=== PATIENT | male | born 2000 | race Two or more races ===

== ENCOUNTER 2019-09-09 02:09 | Inpatient (IN) | payer OTHER ==
[~2019-09-09] VITALS: Ht 162.6 cm; Wt 83.5 kg
--- NOTE | 2019-09-09 02:15 | NUR ---
Pt presents from [facility] for report of drinking 4-6 ounces of bleach around midnight. Pt recently moved here from [place]. Per EMS, pt reported to them that he has been having life stressors and wants to move back to [place]. Pt told this RN that he didn't drink the bleach "for problems" and that it was "an accident". Pt refuses to answer SI screening questions but denies HI. Per EMS, pt has had multiple episodes of emesis with VSS. Pt is alert and oriented. NAD. Pt not swallowing his own saliva, otherwise assessment WNL. Belongings labeled and in locker. Sitter outside of room. Pt in gown.
[2019-09-09] MEDS ORDERED: SODIUM CHLORIDE 0.9% 1,000 ML IV ONE (02:34)
[2019-09-09] MEDS ORDERED: PANTOPRAZOLE 40 MG IV ONE (02:40)
[2019-09-09] MEDS ORDERED: PLEASE ENTER ALLERGIES MC SCH (03:00)
[2019-09-09] MEDS ORDERED: PANTOPRAZOLE 40 MG IV IVPush SCH (03:00)
--- NOTE | 2019-09-09 03:02 | NUR ---
IV STARTED. PT MEDICATED PER MAR. IVF INFUSING. URINE OBTAINED AND TUBED TO LAB. SITTER IN PLACE.
[2019-09-09 03:04] LABS: BASOPHILS # (AUTO) 0.04 x10^3/uL (0-0.3); BASOPHILS % (AUTO) 1 % (0-1); EOSINOPHILS # (AUTO) 0.22 x10^3/uL (0-0.8); EOSINOPHILS % (AUTO) 3 % (1-7); LYMPHOCYTES # (AUTO) 1.68 x10^3/uL (1-6.1); LYMPHOCYTES % (AUTO) 19 % (22-44); MD NO; MEAN CORPUSCULAR HEMOGLOBIN 31.3 pg (27.5-34.5); MEAN CORPUSCULAR HGB CONC 33.2 g/dL (33.2-36.2); MEAN CORPUSCULAR VOLUME 94.3 fL (81-97); MEAN PLATELET VOLUME 8.4 fL (7.4-10.4); MONOCYTES # (AUTO) 0.44 x10^3/uL (0-1.4); MONOCYTES % (AUTO) 5 % (2-9); NEUTROPHILS # (AUTO) 6.34 x10^3/uL (1.8-8.0); NEUTROPHILS % (AUTO) 73 % (42-75); PLATELET COUNT 314 x10^3/uL (130-400); RED BLOOD COUNT 5.02 x10^6/uL (4.38-5.82); RED CELL DISTRIBUTION WIDTH 12.9 % (9.4-14.8)
[2019-09-09 03:15] LABS: ALANINE AMINOTRANSFERASE 30 U/L (12-78); ALBUMIN 4.8 g/dL (3.4-5.0); ANION GAP 8 mmol/L (5-15); CALCIUM 9.5 mg/dL (8.5-10.1); CHLORIDE 110 mmol/L (98-107); CREATININE 1.08 mg/dL (0.7-1.3)
[2019-09-09 03:17] LABS: ALKALINE PHOSPHATASE 107 U/L (45-117); BILIRUBIN,TOTAL 0.6 mg/dL (0.2-1.0); TOTAL PROTEIN 9.1 g/dL (6.4-8.2)
[2019-09-09 03:18] LABS: SALICYLATE LEVEL < 1.7 mg/dL (2.8-20.0)
[2019-09-09 03:19] LABS: AMPHETAMINE SCREEN, URINE Negative (Negative); BARBITURATE SCREEN, URINE Negative (Negative); BENZODIAZEPINE SCREEN, URINE Negative (Negative); CANNABINOID SCREEN, URINE Negative (Negative); COCAINE SCREEN, URINE Negative (Negative); METHADONE SCREEN, URINE Negative (Negative); OPIATE SCREEN, URINE Negative (Negative)
--- NOTE | 2019-09-09 03:36 | NUR ---
Repot given to KATIE Ley
[2019-09-09 04:05] VITALS: BP 124/74
[2019-09-09] MEDS ORDERED: morphine SULFATE 10 MG/ML, 1ML IVPush PRN (04:30)
[2019-09-09] MEDS ORDERED: PROMETHAZINE 25 MG/ML, 1ML IM PRN (04:30)
[2019-09-09] MEDS ORDERED: LABETALOL 5MG/ML, 20ML IVPush PRN (04:30)
[2019-09-09] MEDS ORDERED: ONDANSETRON 2MG/ML, 2ML IVPush PRN ×2 (04:30→12:00)
[2019-09-09] MEDS: LACTATED RINGERS 1,000 ML IV SCH ×3 (04:38→21:00)
[2019-09-09 06:41] VITALS: BP 122/74
[2019-09-09] MEDS: PANTOPRAZOLE 40 MG IV IVPush SCH ×2 (08:12→21:00)
[2019-09-09] MEDS ORDERED: PROPOFOL 10 MG/ML, 20ML ONE (11:19)
[2019-09-09] MEDS ORDERED: CEFAZOLIN 1,000 MG ONE (11:19)
[2019-09-09] MEDS ORDERED: SUCCINYLCHOLINE 20 MG/ML, 10ML ONE (11:19)
[2019-09-09] MEDS ORDERED: ONDANSETRON 2MG/ML, 2ML ONE (11:19)
[2019-09-09] MEDS ORDERED: PROMETHAZINE 25 MG/ML, 1ML IV PRN (12:00)
[2019-09-09] MEDS ORDERED: FENTANYL PF 100 MCG/2ML IV PRN (12:00)
[2019-09-09] MEDS ORDERED: METOCLOPRAMIDE 5 MG/ML, 2ML IV PRN (12:00)
[2019-09-09] MEDS ORDERED: OXYcodone 5 MG/5 ML ORAL.SOL UDC PO PRN (12:00)
[2019-09-09] MEDS ORDERED: MEPERIDINE/PF 25MG/0.5ML IVPush PRN (12:00)
[2019-09-09] MEDS ORDERED: HYDROmorphone 1 MG/ML, 1ML INJ IV PRN (12:00)
[2019-09-09] MEDS ORDERED: hydrALAzine 20 MG/ML, 1ML IV PRN (12:00)
[2019-09-09] MEDS ORDERED: ALBUTEROL SULFATE 2.5 MG/3 ML NPPB PRN (12:00)
[2019-09-09] MEDS ORDERED: KETOROLAC 30 MG/1 ML IV PRN (12:00)
[2019-09-09] MEDS ORDERED: LABETALOL 5MG/ML, 20ML IV PRN (12:00)
[2019-09-09 13:44] VITALS: BP 132/88
[2019-09-09 20:03] VITALS: BP 114/76
[2019-09-10 01:32] VITALS: BP 111/72
[2019-09-10] MEDS: LACTATED RINGERS 1,000 ML IV SCH ×2 (03:59→15:08)
[2019-09-10 07:21] VITALS: BP 137/89
[2019-09-10] MEDS: PANTOPRAZOLE 40 MG IV IVPush SCH (11:53)
[2019-09-10 13:02] VITALS: BP 114/70
[2019-09-10] MEDS ORDERED: OMEP-110 PO (14:40)
== END 2019-09-10 16:15 | disposition home or self-care (01) | DRG 918 ==
LOC: ED 02:51 → EDIP 03:10 → 3N 03:55 → DCLOUNGE 09-10 16:08
PROVIDERS: ADMIT Family Medicine; ATTEND Family Medicine
PROC: 0DJ08ZZ Inspection of Upper Intestinal Tract, Via Natural or Artificial Opening Endoscopic (ICD-10-PCS; principal; 2019-09-09 11:30)
DX: T54.92XA Toxic effect of unspecified corrosive substance, intentional self-harm, initial encounter (principal); F17.210 Nicotine dependence, cigarettes, uncomplicated; F39 Unspecified mood [affective] disorder; K29.70 Gastritis, unspecified, without bleeding; F10.129 Alcohol abuse with intoxication, unspecified; R13.10 Dysphagia, unspecified; Y92.89 Other specified places as the place of occurrence of the external cause
CPT/HCPCS: 36415; 80053; 80307; 85025; G0378; J0690; J2405; J2704; C9113; J0330; J7030; J7120